=== PATIENT | female | born 2000 | race African-American/Black ===

== ENCOUNTER 2024-02-13 11:39 | Emergency (ER) | payer MEDICAID ==
[~2024-02-13] VITALS: Ht 162.6 cm; Wt 55.0 kg
[2024-02-13 11:46] VITALS: O2SAT 99
[2024-02-13 11:47] VITALS: TEMP 98.1; O2SAT 99
[2024-02-13] MEDS ORDERED: NAPR-681 MT (12:16)
[2024-02-13] MEDS ORDERED: AMOX1TAB16 MT (12:16)
[2024-02-13 12:39] VITALS: BP 123/88; PULSE 72; RESP 18
[2024-02-13] MEDS: KETOROLAC 30MG/ML VIAL IM ONE (12:39)
== END 2024-02-13 12:41 | disposition home or self-care (01) ==
LOC: ER 11:39
DX: K08.89 Other specified disorders of teeth and supporting structures (principal)
CPT/HCPCS: 99283; 96372; J1885